=== PATIENT | female | born 1975 | race Two or more races ===

== ENCOUNTER 2017-12-16 06:34 | Inpatient (IN) | payer BC ==
[2017-12-16] VITALS (12 sets, daily range): BP systolic 99–118; BP diastolic 54–77
[~2017-12-16] VITALS: Ht 154.9 cm; Wt 67.6 kg
[~2017-12-16 06:34] MED LIST: NKM
[2017-12-16] MEDS ORDERED: Zemuron 50mg/5ml Inj IV ONE ×2 (08:10→10:08)
[2017-12-16] MEDS ORDERED: Succinylcholine 20mg/ml 10ml vial ONE (08:10)
[2017-12-16] MEDS ORDERED: fentaNYL 100 mcg/2 mL IV ONE (08:27)
[2017-12-16] MEDS ORDERED: Midazolam 2mg/2ml Inj ONE (08:27)
[2017-12-16] MEDS ORDERED: Bacitracin 50000 Units Vial ONE (08:28)
[2017-12-16] MEDS ORDERED: Ketorolac 30mg Inj ONE (08:30)
[2017-12-16] MEDS ORDERED: Neostigmine 1mg/ml 10ml Inj ONE (08:30)
[2017-12-16] MEDS ORDERED: LR 1000ml ONE (08:30)
[2017-12-16] MEDS ORDERED: Sterile Water Irrig 1000ml IRRIG ONE (08:30)
--- NOTE | 2017-12-16 08:34 | Pre-Procedure Note/Attestation ---
Pre-Procedure Note/Attestation Complete Prior to Procedure Planned Procedure: bilateral Procedure Narrative: staged debridement of bilateral buttock and back soft tissue necrosis and flap delay and vac placement Indications for Procedure Pre-Operative Diagnosis: bilateral buttock and back soft tissue necrosis, cellulitis Attestation I attest that I discussed the nature of the procedure; its benefits; risks and complications; and alternatives (and the risks and benefits of such alternatives ), prior to the procedure, with the patient (or the patient's legal renewals representative). I attest that, if there was a reasonable possibility of needing a blood transfusion, the patient (or the patient's legal renewals representative) was given the [place] [facility] standardized written summary, pursuant to the [place] Blood Safety Act ([place] Health and Safety Code # 1645, as amended). I attest that I re-evaluated the patient just prior to the surgery and that there has been no change in the patient's H&P, except as documented below: Malcolm Danielle M.D. Dec 16, 2017 08:34
[2017-12-16] MEDS ORDERED: DiphenhydrAMINE 50mg/ml Inj IVP PRN ×2 (09:15→10:00)
[2017-12-16] MEDS ORDERED: PCA HYDROmorphone 1mg/ml 30 ML IV PRN (09:15)
[2017-12-16] MEDS ORDERED: Naloxone 0.4mg/ml Inj IVP PRN (09:15)
[2017-12-16] MEDS ORDERED: Rate Change PCA 1 Each MISC PRN (09:15)
[2017-12-16] MEDS ORDERED: LORazepam 1mg tab ORAL PRN (09:15)
[2017-12-16] MEDS ORDERED: PCA Education Pamphlet MISC ONE (09:15)
[2017-12-16] MEDS ORDERED: NS Irrig 1000ml IRRIG ONE (09:30)
[2017-12-16] MEDS ORDERED: Morphine Sulfate 10mg/ml Inj ONE (09:41)
[2017-12-16] MEDS ORDERED: Glycopyrrolate 0.2mg/ml 1ml Vial ONE (09:41)
[2017-12-16] MEDS ORDERED: Sodium Chloride 10ml vial INJ ONE (09:42)
[2017-12-16] MEDS ORDERED: LR 1000ml 1,000 ML IVLG SCH (10:00)
[2017-12-16] MEDS ORDERED: Meperidine 50mg/ml Inj(FOR RIGORS ONLY) IV PRN (10:00)
[2017-12-16] MEDS ORDERED: Midazolam 2mg/2ml Inj IVP PRN (10:00)
[2017-12-16] MEDS ORDERED: Metoclopramide 10mg/2ml Inj IVP PRN (10:00)
[2017-12-16] MEDS ORDERED: fentaNYL 100 mcg/2 mL IV PRN (10:00)
[2017-12-16] MEDS ORDERED: Ketorolac 30mg Inj IV PRN (10:00)
--- NOTE | 2017-12-16 10:00 | Anethesia Preoperative Eval ---
Anesthesia Pre-op PMH/ROS General Date of Evaluation: Dec 16, 2017 Time of Evaluation: 08:20 Anesthesiologist: Bobby ASA Score: ASA 2 Mallampati Score Class I : Soft palate, uvula, fauces, pillars visible Class II: Soft palate, uvula, fauces visible Class III: Soft palate, base of uvula visible Class IV: Only hard plate visible Mallampati Classification: Class II Surgeon: Shashi Diagnosis: Bilateral buttocks cellulitis Surgical Procedure: Excision of necrotik tissues bilateral buttocks Anesthesia History: none Family History: no anesthesia problems Allergies: Coded Allergies: No Known Allergies (Unverified , 12/15/17) Medications: see eMAR Past Medical History Cardiovascular: Denies: HTN, CAD, [place], valve dz, arrhythmia, other Pulmonary: Reports: asthma - mild; Denies: COPD, RAUL, other Gastrointestinal/Genitourinary: Reports: GERD; Denies: CRI, ESRD, other Neurologic/Psychiatric: Reports: depression/anxiety; Denies: dementia, CVA, TIA, other Endocrine: Denies: DM, hypothyroidism, steroids, other HEENT: Denies: cataract (L), cataract (R), glaucoma, [place]BE (L), [place]BE (R), other Hematology/Immune: Denies: anemia, DVT, bleeding disorder, other Musculoskeletal/Integumentary: Denies: OA, RA, DJD, DDD, edema, other PMH Narrative: as above PSxH Narrative: Breasts augmentation, abdominoplasty Anesthesia Pre-op Phys. Exam Physician Exam Last Vital Signs Date Time Temp Pulse Resp B/P (MAP) Pulse Ox O2 Delivery O2 Flow Rate FiO2 12/16/17 07:12 Room Air 12/16/17 07:11 98.2 56 18 118/77 (91) 99 98.2 Constitutional: NAD Neurologic: CN 2-12 intact Cardiovascular: RRR, no M/R/G Respiratory: CTA Gastrointestinal: S/NT/ND Airway Exam Mallampati Score: Class II MO: full Neck: flexible ROM: full Teeth: intact Anesthesia Pre-op A/P Labs Urine Test Test 12/16/17 06:50 Urine HCG, Qualitative Negative (NEGATIVE) Studies Pre-op Studies: EKG - NSR Risk Assessment & Plan Assessment: ASA 2 Plan: GA with ETT prone position, PONV, possible intraoperative blood transfusion Status Change Before Surgery: No Pre-Antibiotics Drug: Ancef 1 gr. Given Within 1 Hr of Incision: Yes Time Given: 09:12 Manny Rosales MD Dec 16, 2017 10:00
--- NOTE | 2017-12-16 10:58 | Operative Note - PDOC ---
Operative Note Operative Note Date of Operation/Procedure: Dec 16, 2017 Pre-op Diagnosis: bilateral buttock and back soft tissue necrosis, cellulitis Procedure: staged debridement of bilateral buttock and back soft tissue necrosis, flap delay and wound vac placement Post-op Diagnosis: same Surgeon: jeanmarie Percolator Operator: jonathan Anesthesiologist: yamil Anesthesia: general Specimen: yes - bilateral buttock and back soft tissue necrosis Complications: none Condition: stable Fluids: 1 prbc Estimated Blood Loss: volume - 500 Drains: wound vac Implant(s) used?: No Indications for Procedure symptomatic bilateral buttock and back soft tissue necrosis, cellulitis Description of Procedure see op note dictation Malcolm Danielle M.D. Dec 16, 2017 10:58
--- NOTE | 2017-12-16 11:12 | Immediate Post-Op Evaluation ---
Immediate Post-Op Evalulation Immediate Post-Op Evalulation Procedure: Excision of necroticn tissues bilateral buttock Date of Evaluation: Dec 16, 2017 Time of Evaluation: 11:11 IV Fluids: 1500 Blood Products: 1 unit of PRBC Estimated Blood Loss: 400 Urinary Output: 150 Blood Pressure Systolic: 114 Blood Pressure Diastolic: 56 Pulse Rate: 78 Respiratory Rate: 20 O2 Sat by Pulse Oximetry: 99 Temperature (Fahrenheit): 97.6 Pain Score (1-10): 2 Nausea: No Vomiting: No Complications none Patient Status: reacts, patent, extubated, none Hydration Status: adequate Manny Rosales MD Dec 16, 2017 11:12
[2017-12-16] MEDS ORDERED: DiphenhydrAMINE 50mg/ml Inj IVP SCH (11:15)
[2017-12-16] MEDS ORDERED: Acetaminophen (Non formulary) 100 ML IV ONE (14:00)
[2017-12-16] MEDS: LR 1000ml 1,000 ML IV SCH ×2 (15:02→23:54)
[2017-12-16] MEDS: Ampicillin/Sulbactam Sod 3 GM in NS 110 ML IVPB SCH ×2 (15:02→23:55)
--- NOTE | 2017-12-16 17:36 | 48 Hour Post Anesthesia Eval ---
Post Anesthesia Evaluation Procedure: Excision of necroticn tissues bilateral buttock Date of Evaluation: Dec 16, 2017 Time of Evaluation: 18:55 Blood Pressure Systolic: 112 0: 68 Pulse Rate: 67 Respiratory Rate: 16 Temperature (Fahrenheit): 98 O2 Sat by Pulse Oximetry: 100 Airway: patent Nausea: No Vomiting: No Pain Intensity: 3 Hydration Status: adequate Cardiopulmonary Status: Stable Mental Status/LOC: patient returned to baseline Follow-up Care/Observations: 0 Post-Anesthesia Complications: 0 Follow-up care needed: N/A Arnoldo Mera MD Dec 16, 2017 17:36
--- NOTE | 2017-12-16 18:15 | Anethesia Preoperative Eval ---
Anesthesia Pre-op PMH/ROS General Date of Evaluation: Dec 16, 2017 Time of Evaluation: 17:17 Anesthesiologist: Samaria ASA Score: ASA 2 Mallampati Score Class I : Soft palate, uvula, fauces, pillars visible Class II: Soft palate, uvula, fauces visible Class III: Soft palate, base of uvula visible Class IV: Only hard plate visible Mallampati Classification: Class II Surgeon: Shashi Diagnosis: Necrotic Skin Tissue Bilateral Buttocks Surgical Procedure: Staged Debridement Necrotic Skin Tissue Bilateral Buttocks Anesthesia History: none Family History: no anesthesia problems Allergies: Coded Allergies: No Known Allergies (Unverified , 12/15/17) Medications: see eMAR Past Medical History Pulmonary: Reports: asthma Neurologic/Psychiatric: Reports: depression/anxiety PSxH Narrative: Bilateral breast Aug Anesthesia Pre-op Phys. Exam Physician Exam Last Vital Signs Date Time Temp Pulse Resp B/P (MAP) Pulse Ox O2 Delivery O2 Flow Rate FiO2 12/16/17 17:36 208.4 67 16 100 12/16/17 12:30 112/68 (83) 12/16/17 12:05 Nasal Cannula 3 Constitutional: NAD Neurologic: CN 2-12 intact Cardiovascular: RRR Respiratory: CTA Gastrointestinal: S/NT/ND Airway Exam Mallampati Score: Class II MO: full ROM: full Teeth: intact Anesthesia Pre-op A/P Labs Urine Test Test 12/16/17 06:50 Urine HCG, Qualitative Negative (NEGATIVE) Risk Assessment & Plan Assessment: ASA 2 Plan: GA Status Change Before Surgery: No Pre-Antibiotics Drug: Arnoldo Ragland MD Dec 16, 2017 18:15
[2017-12-16] MEDS: PCA shift volume MISC SCH (19:00)
[2017-12-16] MEDS ORDERED: Albuterol ud Inhalation HHN PRN (20:00)
--- NOTE | 2017-12-16 20:01 | History & Physical ---
History and Physical History & Physicial H&P [id number] ADDISON STAPLETON M.D. Dec 16, 2017 20:01
[2017-12-16] MEDS: Heparin 5000 units/ml inj SUBQ SCH (22:00)
[2017-12-17 00:22] VITALS: BP 103/59
[2017-12-17 04:00] VITALS: BP 100/63
[2017-12-17] MEDS: Heparin 5000 units/ml inj SUBQ SCH ×3 (05:10→21:45)
[2017-12-17] MEDS: Ampicillin/Sulbactam Sod 3 GM in NS 110 ML IVPB SCH ×4 (05:10→23:11)
[2017-12-17] MEDS: LR 1000ml 1,000 ML IV SCH ×2 (05:11→21:45)
[2017-12-17] MEDS: PCA shift volume MISC SCH (07:00)
[2017-12-17 07:43] LABS: BASOPHILS % (AUTO) 0.8 % (0.0-2.0); EOSINOPHILS % (AUTO) 0.8 % (0.0-3.0); HEMATOCRIT 28.2 % (37.0-47.0); HEMOGLOBIN 10.2 G/DL (12.0-16.0); LYMPHOCYTES % (AUTO) 27.7 % (20.0-45.0); MEAN CORPUSCULAR VOLUME 86 FL (80-99); MONOCYTES % (AUTO) 7.7 % (1.0-10.0); NEUTROPHILS % (AUTO) 62.9 % (45.0-75.0); PLATELET COUNT 195 K/UL (150-450); RED BLOOD COUNT 3.27 M/UL (4.20-5.40); RED CELL DISTRIBUTION WIDTH 10.7 % (11.6-14.8); WHITE BLOOD COUNT 6.5 K/UL (4.8-10.8)
[2017-12-17 08:00] VITALS: BP 105/58
[2017-12-17 08:10] LABS: ANION GAP 5 mmol/L (5-15); BLOOD UREA NITROGEN 5 mg/dL (7-18); CALCIUM 7.6 MG/DL (8.5-10.1); CARBON DIOXIDE 26 MMOL/L (21-32); CHLORIDE 106 MMOL/L (98-107); CREATININE 0.5 MG/DL (0.55-1.30); POTASSIUM 3.5 MMOL/L (3.5-5.1); SODIUM 137 MMOL/L (136-145)
--- NOTE | 2017-12-17 12:10 | General Progress Note ---
Progress Note Progress Note pt doing very well except for some nausea. Pt reports resolution of pre-op local and systemic symptoms and very pleased with results. (+) OOB PE: flaps viable, VACS functioning; (-) collections (-) signs of infection H/H 03/07 A/P 1. anti-nausea rx; change from dilaudid to morphine if nausea continues 2. drop IVF to 50 cc/hr 3. d/c joy 4. cont iv abx, HSQ 5. daily labs 6. to OR [facility] fo further debridement and flap closure over drains 7. frequent position changes, OOB Malcolm Danielle M.D. Dec 17, 2017 12:10
[2017-12-17 12:32] VITALS: BP 103/69
[2017-12-17 16:00] VITALS: BP 106/59
[2017-12-17] MEDS ORDERED: HYDROcodone/Acetamin 7.5/325 tab ORAL PRN (17:00)
[2017-12-17] MEDS: HYDROcodone/Acetamin 7.5/325 tab ORAL PRN (19:40)
[2017-12-17 20:00] VITALS: BP 110/60
[2017-12-18 00:21] VITALS: BP 121/70
[2017-12-18 04:00] VITALS: BP 117/61
[2017-12-18] MEDS: Ampicillin/Sulbactam Sod 3 GM in NS 110 ML IVPB SCH ×4 (05:18→23:22)
[2017-12-18] MEDS: Heparin 5000 units/ml inj SUBQ SCH ×3 (05:20→21:25)
[2017-12-18] MEDS: HYDROcodone/Acetamin 7.5/325 tab ORAL PRN ×2 (05:21→18:27)
[2017-12-18 06:55] LABS: BASOPHILS % (AUTO) 1.1 % (0.0-2.0); EOSINOPHILS % (AUTO) 0.8 % (0.0-3.0); HEMATOCRIT 27.5 % (37.0-47.0); HEMOGLOBIN 9.7 G/DL (12.0-16.0); LYMPHOCYTES % (AUTO) 18.8 % (20.0-45.0); MEAN CORPUSCULAR VOLUME 86 FL (80-99); MONOCYTES % (AUTO) 9.7 % (1.0-10.0); NEUTROPHILS % (AUTO) 69.6 % (45.0-75.0); PLATELET COUNT 188 K/UL (150-450); RED CELL DISTRIBUTION WIDTH 10.4 % (11.6-14.8); WHITE BLOOD COUNT 5.1 K/UL (4.8-10.8)
[2017-12-18 07:00] LABS: ANION GAP 6 mmol/L (5-15); BLOOD UREA NITROGEN 5 mg/dL (7-18); CARBON DIOXIDE 28 MMOL/L (21-32); CHLORIDE 105 MMOL/L (98-107); CREATININE 0.5 MG/DL (0.55-1.30); SODIUM 139 MMOL/L (136-145)
[2017-12-18 08:00] VITALS: BP 105/62
[2017-12-18 12:00] VITALS: BP 106/60
--- NOTE | 2017-12-18 12:18 | Pre-Procedure Note/Attestation ---
Pre-Procedure Note/Attestation Complete Prior to Procedure Planned Procedure: bilateral Procedure Narrative: staged debridement of bilateral buttock and back necrotic soft tissue and advancement flap closure Indications for Procedure Pre-Operative Diagnosis: bilateral buttock and back soft tissue necrosis, cellulitis Attestation I attest that I discussed the nature of the procedure; its benefits; risks and complications; and alternatives (and the risks and benefits of such alternatives ), prior to the procedure, with the patient (or the patient's legal digital sales representative). I attest that, if there was a reasonable possibility of needing a blood transfusion, the patient (or the patient's legal digital sales representative) was given the [facility] standardized written summary, pursuant to the [place] Blood Safety Act ([place] Health and Safety Code # 1645, as amended). I attest that I re-evaluated the patient just prior to the surgery and that there has been no change in the patient's H&P, except as documented below: Malcolm Danielle M.D. Dec 18, 2017 12:18
--- NOTE | 2017-12-18 12:21 | General Progress Note ---
Progress Note Progress Note pt c/o headache and some nausea (+) OOB PE: AF, VSS flaps viable (-)collections (-) signs infection H/H 9.10/02 A/P 1. NPO, IVF p MN 2. to or in am for further debridement of bilateral buttock and back necrotic soft tissue and flap closure 3. cont abx, vac, dvt ppx 4. dr leonidas dodson ip will be covering for me from 12/19/17 on 5. post-op care d/w pt and all questions answered Malcolm Danielle M.D. Dec 18, 2017 12:21
[2017-12-18] MEDS: LR 1000ml 1,000 ML IV SCH (15:59)
[2017-12-18 16:00] VITALS: BP 110/63
[2017-12-18 20:00] VITALS: BP 117/71
[2017-12-19] VITALS (11 sets, daily range): BP systolic 103–132; BP diastolic 50–83
[2017-12-19] MEDS: LR 1000ml 1,000 ML IV SCH ×4 (00:01→21:21)
[2017-12-19] MEDS: Ampicillin/Sulbactam Sod 3 GM in NS 110 ML IVPB SCH ×4 (05:15→23:33)
[2017-12-19] MEDS: Heparin 5000 units/ml inj SUBQ SCH ×3 (05:15→21:42)
[2017-12-19] MEDS ORDERED: Sodium Chloride 10ml vial INJ ONE (06:11)
[2017-12-19] MEDS ORDERED: Propofol 200mg/20ml IV ONE (06:11)
[2017-12-19] MEDS ORDERED: Lidocaine 1% MPF 10mg/ml 5ml ONE (06:11)
[2017-12-19] MEDS ORDERED: Dexamethasone 4mg/ml vial ONE (06:11)
[2017-12-19] MEDS ORDERED: Lidocaine 1% Plain 30 ml INJ ONE (06:11)
[2017-12-19] MEDS ORDERED: fentaNYL 100 mcg/2 mL IV ONE (06:17)
[2017-12-19] MEDS ORDERED: Zemuron 50mg/5ml Inj IV ONE (06:26)
[2017-12-19] MEDS ORDERED: NeoSporin Gu Irrig 1ml Amp IRRIG ONE (06:40)
[2017-12-19] MEDS ORDERED: Bacitracin 50000 Units Vial ONE (06:40)
[2017-12-19] MEDS ORDERED: LR 1000ml 1,000 ML IVLG SCH (06:43)
[2017-12-19] MEDS ORDERED: oxyCODONE HCL/Acetaminophen 5/325mg ORAL PRN (06:45)
[2017-12-19] MEDS ORDERED: Midazolam 2mg/2ml Inj IVP PRN (06:45)
[2017-12-19] MEDS ORDERED: Acetaminophen (Non formulary) 100 ML IV ONE (06:45)
[2017-12-19] MEDS ORDERED: HYDROcodone/Acetamin 7.5/325 tab ORAL PRN (06:45)
[2017-12-19] MEDS ORDERED: Hydromorphone 0.5mg/0.5ml inj IVP PRN (06:45)
[2017-12-19] MEDS ORDERED: Metoclopramide 10mg/2ml Inj IVP PRN (06:45)
[2017-12-19] MEDS ORDERED: Norco 5mg/325mg tab ORAL PRN (06:45)
[2017-12-19] MEDS ORDERED: DiphenhydrAMINE 50mg/ml Inj IVP PRN (06:45)
[2017-12-19] MEDS ORDERED: LORazepam Inj 2mg/ml 1ml IV PRN (06:45)
[2017-12-19] MEDS ORDERED: Atropine Inj 1mg/10ml Syr IV PRN (06:45)
[2017-12-19] MEDS ORDERED: Labetalol 5mg/ml 20ml vial IV PRN (06:45)
[2017-12-19] MEDS ORDERED: fentaNYL 100 mcg/2 mL IV PRN (06:45)
--- NOTE | 2017-12-19 06:45 | Immediate Post-Op Evaluation ---
Immediate Post-Op Evalulation Immediate Post-Op Evalulation Procedure: Excision of necroticn tissues bilateral buttock Date of Evaluation: Dec 19, 2017 Time of Evaluation: 09:48 IV Fluids: 900 LR Blood Products: 0 Estimated Blood Loss: 100 Urinary Output: 0 Blood Pressure Systolic: 125 Blood Pressure Diastolic: 75 Pulse Rate: 81 Respiratory Rate: 16 O2 Sat by Pulse Oximetry: 100 Temperature (Fahrenheit): 97.7 Pain Score (1-10): 2 Nausea: No Vomiting: No Complications 0 Patient Status: awake, reacts, patent, extubated, none Hydration Status: adequate Dru Gram Ancef IV Given Within 1 Hr of Incision: Yes Time Given: 07:11 Arnoldo Mera MD Dec 19, 2017 06:45
[2017-12-19] MEDS ORDERED: LR 1000ml ONE (07:00)
[2017-12-19] MEDS ORDERED: Sterile Water Irrig 1000ml IRRIG ONE (07:00)
[2017-12-19] MEDS ORDERED: NS Irrig 1000ml ONE (07:00)
[2017-12-19] MEDS ORDERED: Propofol 1,000mg/ 100ml btl IV ONE (07:00)
[2017-12-19] MEDS ORDERED: NS Irrig 2000ml IRRIG ONE (07:00)
[2017-12-19 07:05] LABS: BASOPHILS % (AUTO) 1.5 % (0.0-2.0); EOSINOPHILS % (AUTO) 1.1 % (0.0-3.0); HEMATOCRIT 27.2 % (37.0-47.0); HEMOGLOBIN 9.6 G/DL (12.0-16.0); LYMPHOCYTES % (AUTO) 46.1 % (20.0-45.0); MEAN CORPUSCULAR VOLUME 85 FL (80-99); MONOCYTES % (AUTO) 9.1 % (1.0-10.0); NEUTROPHILS % (AUTO) 42.3 % (45.0-75.0); PLATELET COUNT 201 K/UL (150-450); RED CELL DISTRIBUTION WIDTH 10.1 % (11.6-14.8); WHITE BLOOD COUNT 4.5 K/UL (4.8-10.8)
[2017-12-19 07:06] LABS: ANION GAP 5 mmol/L (5-15); BLOOD UREA NITROGEN 4 mg/dL (7-18); CALCIUM 7.9 MG/DL (8.5-10.1); CARBON DIOXIDE 31 MMOL/L (21-32); CHLORIDE 106 MMOL/L (98-107); CREATININE 0.6 MG/DL (0.55-1.30); POTASSIUM 3.5 MMOL/L (3.5-5.1); SODIUM 141 MMOL/L (136-145)
[2017-12-19] MEDS ORDERED: Glycopyrrolate 0.2mg/ml 1ml Vial ONE (08:05)
[2017-12-19] MEDS ORDERED: Neostigmine 1mg/ml 10ml Inj ONE (08:05)
--- NOTE | 2017-12-19 09:38 | Operative Note - PDOC ---
Operative Note Operative Note Pre-op Diagnosis: bilateral buttock and back soft tissue necrosis, cellulitis Procedure: staged debridement of bilateral buttock and hip soft tissue necrosis, advancement flap closure Post-op Diagnosis: same Post-op Diagnosis: same as pre-op Surgeon: jeanmarie Corporate Statistical Financial Analyst: jonathan Anesthesiologist: grayson Anesthesia: general Specimen: yes - bilateral buttock and hip soft tissue necrosis Complications: none Condition: stable Estimated Blood Loss: volume - 300 Drains: RENATO Implant(s) used?: No Indications for Procedure symptomatic soft tissue necrosis, cellulitis Description of Procedure see dictation Malcolm Danielle M.D. Dec 19, 2017 09:38
[2017-12-19] MEDS: Morphine Sulfate 4mg/ml Inj (IV USE ONLY) IVP PRN ×2 (13:02→21:39)
--- NOTE | 2017-12-19 19:43 | Internal Med Progress Note ---
Subjective Physician Name ChristineAddison Attending Physician Malcolm Danielle M.D. Current Medications Medications (Trade) Dose Ordered Sig/Stephanie Route PRN Reason Start Time Stop Time Status Last Admin Dose Admin Acetaminophen (Tylenol) 650 mg Q6H PRN ORAL Prn Headache 12/17/17 15:45 01/16/18 15:44 12/18/17 23:23 Albuterol Sulfate (Proventil) 2.5 mg Q4H PRN HHN sob 12/16/17 20:00 12/21/17 19:59 Ampicillin Sodium/ Sulbactam Sodium 3 gm/Sodium Chloride 110 ml @ 220 mls/hr Q6HR IVPB 12/16/17 14:00 12/23/17 13:59 12/19/17 17:02 Heparin Sodium (Porcine) (Heparin 5000 units/ml) 5,000 units EVERY 8 HOURS SUBQ 12/16/17 22:00 01/15/18 21:59 12/19/17 13:58 Lactated Ringer's 1,000 ml @ 125 mls/hr Q8H IV 12/19/17 12:52 01/18/18 12:51 12/19/17 13:15 Morphine Sulfate (Morphine Sulfate) 4 mg Q4H PRN IVP For Pain 12/19/17 12:52 12/26/17 12:51 12/19/17 13:02 Ondansetron HCl (Zofran) 4 mg Q4H PRN IVP Nausea & Vomiting 12/18/17 11:00 01/17/18 10:59 12/18/17 18:27 Allergies: Coded Allergies: No Known Allergies (Unverified , 12/15/17) All Systems: reviewed and negative except above - 2/10 pelvic pain; + RYAN Objective Last Vital Signs Date Time Temp Pulse Resp B/P (MAP) Pulse Ox O2 Delivery O2 Flow Rate FiO2 12/19/17 16:00 97.9 71 20 111/72 (85) 100 97.9 12/19/17 14:30 Room Air 21 12/19/17 10:25 3 Laboratory Tests Test 12/19/17 06:35 White Blood Count 4.5 K/UL (4.8-10.8) L Red Blood Count 3.20 M/UL (4.20-5.40) L Hemoglobin 9.6 G/DL (12.0-16.0) L Hematocrit 27.2 % (37.0-47.0) L Mean Corpuscular Volume 85 FL (80-99) Mean Corpuscular Hemoglobin 30.1 PG (27.0-31.0) Mean Corpuscular Hemoglobin Concent 35.5 G/DL (32.0-36.0) Red Cell Distribution Width 10.1 % (11.6-14.8) L Platelet Count 201 K/UL (150-450) Mean Platelet Volume 7.0 FL (6.5-10.1) Neutrophils (%) (Auto) 42.3 % (45.0-75.0) L Lymphocytes (%) (Auto) 46.1 % (20.0-45.0) H Monocytes (%) (Auto) 9.1 % (1.0-10.0) Eosinophils (%) (Auto) 1.1 % (0.0-3.0) Basophils (%) (Auto) 1.5 % (0.0-2.0) Sodium Level 141 MMOL/L (136-145) Potassium Level 3.5 MMOL/L (3.5-5.1) Chloride Level 106 MMOL/L (98-107) Carbon Dioxide Level 31 MMOL/L (21-32) Anion Gap 5 mmol/L (5-15) Blood Urea Nitrogen 4 mg/dL (7-18) L Creatinine 0.6 MG/DL (0.55-1.30) Estimat Glomerular Filtration Rate > 60 mL/min (>60) Glucose Level 101 MG/DL (74-106) Calcium Level 7.9 MG/DL (8.5-10.1) L Intake and Output 12/18/17 12/19/17 19:00 07:00 Intake Total 530 ml 1520 ml Output Total 200 ml 200 ml Balance 330 ml 1320 ml Intake Oral 480 ml 300 ml IV Total 50 ml 1220 ml Drainage Total 200 ml 200 ml # Voids 3 3 # Bowel Movements 1 Objective PE: Gen - NAD. awake HEENT - NC/AT CVS - RRR. nl s1,2 Lungs - CTA b/l Abd - ND/NT Ext - no c/c/e skin - gluteal wound vac c/d/i ; 2 drains on right and 2 drains on left Assessment/Plan Assessment/Plan bilateral buttock and back soft tissue necrosis, cellulitis s/p staged debridement of bilateral buttock and hip soft tissue necrosis, advancement flap closure - Medsurg - Abx - Plastics following - Wound vac draining - Monitor h/H dc planning - ADDISON Eagle M.D. Dec 19, 2017 19:43
[2017-12-20 00:41] VITALS: BP 119/72
[2017-12-20] MEDS: Morphine Sulfate 4mg/ml Inj (IV USE ONLY) IVP PRN ×6 (01:22→20:42)
[2017-12-20] MEDS: LR 1000ml 1,000 ML IV SCH ×3 (04:37→20:41)
[2017-12-20] MEDS: Heparin 5000 units/ml inj SUBQ SCH ×3 (05:16→20:50)
[2017-12-20] MEDS: Ampicillin/Sulbactam Sod 3 GM in NS 110 ML IVPB SCH ×4 (05:17→23:50)
[2017-12-20 07:17] LABS: ANION GAP 4 mmol/L (5-15); BLOOD UREA NITROGEN 5 mg/dL (7-18); CALCIUM 7.9 MG/DL (8.5-10.1); CARBON DIOXIDE 30 MMOL/L (21-32); CHLORIDE 106 MMOL/L (98-107); CREATININE 0.6 MG/DL (0.55-1.30); POTASSIUM 3.6 MMOL/L (3.5-5.1); SODIUM 140 MMOL/L (136-145)
[2017-12-20 07:20] LABS: BASOPHILS % (AUTO) 1.1 % (0.0-2.0); EOSINOPHILS % (AUTO) 1.1 % (0.0-3.0); HEMATOCRIT 24.3 % (37.0-47.0); HEMOGLOBIN 8.7 G/DL (12.0-16.0); LYMPHOCYTES % (AUTO) 33.1 % (20.0-45.0); MEAN CORPUSCULAR VOLUME 87 FL (80-99); NEUTROPHILS % (AUTO) 56.6 % (45.0-75.0); PLATELET COUNT 217 K/UL (150-450); RED BLOOD COUNT 2.81 M/UL (4.20-5.40); RED CELL DISTRIBUTION WIDTH 10.7 % (11.6-14.8)
[2017-12-20 08:00] VITALS: BP 107/60
--- NOTE | 2017-12-20 10:49 | Operative Note - Dictated ---
DATE OF OPERATION: 12/16/2017 SURGEON: Malcolm Danielle M.D. SEAM STEAMER SURGEON: Patricia Cardona M.D. ANESTHESIOLOGIST: Manny Rosales M.D. ANESTHESIA: General endotracheal tube anesthesia. PREOPERATIVE DIAGNOSES: 1. Bilateral buttocks, hip, and back soft tissue necrosis secondary to foreign body. 2. Chronic cellulitis of bilateral buttocks. 3. Multiple granulomas in bilateral buttocks, back, and hip soft tissue and muscle. POSTOPERATIVE DIAGNOSES: 1. Bilateral buttocks and back soft tissue necrosis secondary to foreign body. 2. Chronic cellulitis of bilateral buttocks. 3. Multiple granulomas in bilateral buttocks, back, and hip soft tissue and muscle. OPERATIONS PERFORMED: 1. Staged partial removal of foreign material from bilateral buttocks, back, and hips. 2. Elevation and delay of right inferiorly-based gluteal fasciocutaneous flap/adjacent tissue transfer/460 sq. cm. 3. Elevation and delay of left inferiorly-based gluteal fasciocutaneous flap/adjacent tissue transfer/444 cm. 4. Elevation and delay of lumbar spine fasciocutaneous flap/adjacent tissue transfer/300 sq. cm. 5. Radical resection of 460 sq. cm of right buttock necrotic soft tissue mass. 6. Radical resection of 444 cm of left buttock necrotic soft tissue mass. 7. Radical resection of 160 sq cm of right back necrotic soft tissue mass. 8. Radical resection of 140 sq cm of left back necrotic soft tissue mass. 9. Debridement of bilateral necrotic gluteus lesly muscles. 10. Pulse jet lavage irrigation of bilateral buttocks. 11. Wound VAC placement to bilateral buttocks. SPECIMENS: Four, 1. Left back necrotic soft tissue mass. 2. Right back necrotic soft tissue mass. 3. Left buttock necrotic soft tissue mass. 4. Right buttock necrotic soft tissue mass. ESTIMATED BLOOD LOSS: 500 mL. The patient received 1 unit of packed red blood cells. COMPLICATIONS: None. CONDITION: Stable. DRAINS: Wound VACs to bilateral buttocks. INDICATIONS FOR THE PROCEDURE: The patient is a 41-year-old female, who is scheduled today for staged partial removal and debridement of bilateral buttocks, hip, and back soft tissue necrosis as well as fasciocutaneous flap delay and wound VAC placement. The patient has a history of some foreign material, likely silicone injected to bilateral buttocks several years ago. The patient had an unsuccessful attempt at removal via suction lipectomy in the past, which I explained to her complicates her current condition and management of her future course. The patient has had local as well as systemic symptoms such as low back pain, buttock pain, burning, itching, bilateral lower extremity paresthesia, occasional shortness of breath, anxiety, and chronic fatigue. She has been worked up for SINA syndrome and her blood work is pending. Preoperatively, the patient has been optimized by her medical doctor. She was also seen by a psychiatrist preoperatively, so that she understands the followin. That this is a partial staged removal of foreign material that was injected into the buttocks and hips and there is no guarantee that she will get better. 2. There is a possibility that she may get worse and the foreign material may migrate and may have already migrated and may continue to migrate in the future, especially since she . 3. It is impossible for to remove all the foreign material impossible because it is impossible to remove all of it. 4. There is a possibility that this could be cosmetically disfiguring and that can be a very poor cosmetic outcome. 5. There is a chance that her health may not improve. The benefits of the proposed operation would be to debulk and remove as much of the foreign body burden as possible, which would likely take the pressure off the nerves of her spine, her legs, her buttocks, and her back and then it should allow her to to infect, so she is not as prone to recurrent infections and opportunistic infections and lower the amount of residual foreign material, which will minimize potentially migrate to other parts of the body. The patient has had a low-grade chronic cellulitis as well as significant soft tissue hardening and some areas of hyperpigmentation and erythema of bilateral buttocks and hips. We are going to keep the patient on IV antibiotics perioperatively. MRIs, which were previously done of the lumbar spine and pelvis, showed significant soft tissue infiltration of bilateral buttocks and hip, subcutaneous tissue, and significant involvement of bilateral gluteus lesly muscles, some anterolateral migration to the hips, as well as migration to L3 of the lumbar spine. I told the patient that we will manage her pain appropriately and this is going to be a staged procedure. unknown how much of the foreign material we would take out, but we will take out if it possible in a safe manner. We have reiterated to the patient that this could be cosmetically disfiguring, she scarring, or wound may break down. She may need multiple reconstructive surgeries over the next many years and the buttocks may come out significantly deformed. I told her conversely if she does nothing, she is at risk of her whole buttocks necrosing, which would require much more radical surgery. The potential risks of the proposed operation including, but not limited to bleeding, hematoma, infection, seroma, DVT, PE, IA, and , necrosis of the skin flaps, open wounds, delayed healing, hypertrophic scarring, keloid scarring, skin necrosis, damage to sensory and motor nerves, difficulty ambulating, chronic pain, and embolization of the silicone to other parts of the body were discussed with the patient and all questions were answered in the preop holding area. I correlated with the patient's markings and with the physical exam as well as MRI. It was reiterated to the patient that it is unknown how much of the foreign material . The patient understood this and and her buttocks. DESCRIPTION OF PROCEDURE: The patient was taken to the operating room and prior to the induction of general anesthesia in the supine position, perioperative antibiotics were given and SCDs were placed on bilateral lower extremities. She was then positioned and padded in the appropriate position and the patient was placed in a prone position. She was prepped and draped in the usual clean and sterile manner. The anus was protected with a blue towel and [place] dressing. incision in the skin with a #10 scalpel. We dissected down through the skin with electrocautery all the way down to the deep muscle fascia of the gluteus lesly muscle and the paraspinal muscles. We then elevated and delayed. Three fasciocutaneous flaps were elevated and superiorly based lumbar fasciocutaneous flap about 10 cm superiorly and centrally correlating to MRI exam as well as the physical exam findings of the fluctuant mass. It is tender skin. This flap is based on perforators of the not from the posterior back. We then elevated and delayed left and right inferiorly based gluteal fasciocutaneous flaps ____ muscle fascia preserved. Then, in a plane just deep to Gavino fascia, we dissected the skin flap off the necrotic soft tissue mass and with a combination of sharp dissection and electrocautery, we debulked the large amount of fat necrosis and scar tissue and silicone granulomas from bilateral buttocks, hips, and back. There was 160 sq. cm of right back, 140 sq. cm of left back, 460 sq. cm of right buttock, 440 sq. cm of left buttock necrotic soft tissue mass and sent for lab for pathology. After doing this, we were left with a 460 sq. cm of open wound in the right buttock and 440 sq. cm open wound in the left buttock and a total of 300 sq. cm open wound of the lumbar spine soft tissue coverage. We further delayed the flaps by incising the deep muscle fascia of the above-mentioned three fasciocutaneous flaps . We then performed the adjacent tissue transfer that was devoid of soft tissue. lumbar spine adjacent tissue transfer that was performed . After doing this, there was significant necrosis of significant necrosis of bilateral gluteus lesly muscles involving the significant involvement of silicone within the deep muscles electrocautery. We tried to and also popped this open granuloma that was just below the buttocks. We then ensured hemostasis with electrocautery and pulse lavaged with 3 L of antibiotic jet lavage. After doing this, we were quite pleased with initial debulking of flap on the right. We then assured hemostasis and placed the wound VAC and set it to 125 mmHg. The patient was flipped over, extubated, and transferred to recovery room in a stable condition. Malcolm Danielle M.D. DR: ARIEL JOB#: [id number] CC: EDWARDO
--- NOTE | 2017-12-20 10:55 | Operative Note - Dictated ---
DATE OF OPERATION: 12/19/2017 SURGEON: Malcolm Danielle M.D. RAIL[employer]AY [employer]ATION MANAGER SURGEON: Patricia Cardona M.D. ANESTHESIOLOGIST: Arnoldo Mera M.D. ANESTHESIA: General endotracheal tube anesthesia. PREOPERATIVE DIAGNOSES: 1. Open bilateral buttock wounds, status post radical debridement and resection of necrotic soft tissue from bilateral buttocks and back. 2. 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 3. Chronic cellulitis of bilateral buttocks. 4. Bilateral buttock granulomatous disease. POSTOPERATIVE DIAGNOSES: 1. Open bilateral buttock wounds, status post radical debridement and resection of necrotic soft tissue from bilateral buttocks and back. 2. 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 3. Chronic cellulitis of bilateral buttocks. 4. Bilateral buttock granulomatous disease. PROCEDURE PERFORMED: 1. Staged partial removal of foreign bodies from bilateral buttocks and hips as well as removal of granulomas. 2. Radical resection of 500 sq cm of right hip necrotic soft tissue mass. 3. Radical resection of 324 sq cm of left hip necrotic soft tissue mass. 4. Debridement of bilateral gluteus lesly necrotic muscles. 5. Lumbar spine fasciocutaneous advancement flap/adjacent tissue transfer/200 sq cm. 6. Right gluteal fasciocutaneous advancement flap/adjacent tissue transfer/500 sq cm. 7. Left gluteal fasciocutaneous advancement flap/adjacent tissue transfer/324 sq cm. 8. Complex closure of 54 cm open back wound. 9. Prevena incisional wound VAC placement. 10. Pulse jet lavage irrigation of bilateral buttocks open wounds. FINDINGS: As above. SPECIMENS: Two, 1. Left hip necrotic soft tissue mass and skin. 2. Right hip necrotic soft tissue mass and skin. ESTIMATED BLOOD LOSS: 300 mL. DRAINS: A 19-English Chirag x2, 10 mm RENATO x2 in bilateral buttocks, and a Prevena incisional VAC. COMPLICATIONS: None. CONDITION: Stable. INDICATIONS: This is a 41-year-old female, who I previously operated on three days ago. The patient has reported significant resolution of preop symptoms both local and systemic. She has been treated with wound VAC therapy on the floor as well as IV antibiotics. Today, the plan was to take the patient back with debridement of necrotic soft tissue from bilateral buttocks and hips as well as fasciocutaneous advancement flap/adjacent tissue transfer over drains. Risks and benefits of the operation were fully discussed with the patient and the previous operation and reiterated in the holding area today. The patient agreed to proceed. Signed informed consent. All questions were answered and I told the patient the difference between leaving thick flaps and minimizing wound complications versus leaving more foreign material that may become symptomatic in the future and how this is correlated to cosmetic outcome. The patient wanted to be a significant aggressive debridement to which I agreed. DESCRIPTION OF PROCEDURE: The patient was taken to the operating room in the supine position, placed under general endotracheal tube anesthesia after perioperative antibiotics were given and SCDs were placed in bilateral lower extremities. After she was intubated, she was flipped in the prone position. After appropriate positioning and padding of her arms and the rest of the body, removed the wound VAC. The area was prepped and draped in usual clean sterile manner. A blue towel and Ioban dressing was used to block any bowel flow. We started the operation by exploring for any bleeding. There was nothing significant. We then further elevated bilateral inferiorly based gluteal fasciocutaneous flaps 10 cm or so with electrocautery with the aid of a lighted retractor in a plane just superficial to the deep muscle fascia while maintaining blood supply to the inferior gluteal artery perforators, which were supplying her skin flaps. We then used a lighted retractor and we elevated in a plane just deep to Gavino's fashion with a combination of scissors and electrocautery and scalpel technique, we did further debridement of necrotic soft tissue from bilateral hips. There was 500 sq cm in the right hip and 324 sq cm in the left hip, necrotic soft tissue mass that was removed in this manner and sent to the laboratory for specimen. There was significant involvement of bilateral gluteus lesly muscles, which were sharply debrided. Excisional debridement as well as electrocautery was used for hemostasis. After the debridement, we then thinned the flaps with curved Spaulding scissors. After doing this and debriding it as much as possible, leaving the flaps appropriately thick to minimize wound complications, we ensured hemostasis with electrocautery, pulse jet lavage, antibiotic irrigation was then performed. We then had these three previously elevated fasciocutaneous flaps, which were previously delayed. We then released the deep muscle fascia of the lumbar spine fasciocutaneous flap, which was based on the posterior intercostal artery and left and right inferiorly based gluteal fasciocutaneous flaps. Deep muscle fascia was incised and these flaps were surviving on branches of the inferior gluteal artery perforators. After making the cut in the muscle fascia, we advanced the skin to the wound closure. There was some soft tissue defects in the left buttock and underneath the lumbar spine that had to do so with the soft tissue, so the back cut was made and soft tissue was rotated 200 sq cm. Local tissue arrangement was performed underneath the lumbar spine flap 500 sq cm underneath the right hip and 324 sq cm under the left hip. After doing this and ensuring hemostasis, we placed two drains 19-English Chirag drains in the dependent position taken out through a posterior lateral stab incision in the buttocks, secured in place with 2-0 silk sutures and two 10 mm RENATO was placed in the superior aspect taken out through a low back lateral incision secured in place with 2-0 silk sutures. We then did advancement flap progressive tension suturing technique and closure of the wound with 0 Vicryl sutures. We then accounted the dog ears used sterile technique and cut out the excess skin with a #10 blade ensured hemostasis. We were then left with a 54 cm long incision. We then used #0 Vicryl to line up and approximate Gavino's fascia in interrupted fashion 2-0 Vicryl and approximate the deep dermis in interrupted fashion and a running 3-0 Monocryl subcuticular layer. After doing this, there was good contour and minimal tension with good cap refill. We then placed a Prevena incisional VAC placed at 225 mmHg. The drains were secured in place. The patient was flipped over, extubated, and transferred to the recovery room in stable condition. Malcolm Danielle M.D. DR: JOSÉ JOB#: [id number] CC:
[2017-12-20 11:47] VITALS: BP 105/53
--- NOTE | 2017-12-20 14:07 | 48 Hour Post Anesthesia Eval ---
Post Anesthesia Evaluation Procedure: Excision of necroticn tissues bilateral buttock Date of Evaluation: Dec 20, 2017 Time of Evaluation: 16:00 Blood Pressure Systolic: 105 0: 53 Pulse Rate: 64 Respiratory Rate: 18 Temperature (Fahrenheit): 98.5 O2 Sat by Pulse Oximetry: 99 Airway: patent Nausea: No Vomiting: No Pain Intensity: 2 Hydration Status: adequate Cardiopulmonary Status: Stable Mental Status/LOC: patient returned to baseline Follow-up Care/Observations: As per surgery Post-Anesthesia Complications: No anesthetic complication Follow-up care needed: N/A Carl Walter MD Dec 20, 2017 14:06
[2017-12-20 15:56] VITALS: BP 102/61
--- NOTE | 2017-12-20 16:22 | Internal Med Progress Note ---
Subjective Physician Name JavierfranciscaAddison Attending Physician Malcolm Danielle M.D. Current Medications Medications (Trade) Dose Ordered Sig/Stephanie Route PRN Reason Start Time Stop Time Status Last Admin Dose Admin Acetaminophen (Tylenol) 650 mg Q6H PRN ORAL Prn Headache 12/17/17 15:45 01/16/18 15:44 12/18/17 23:23 Albuterol Sulfate (Proventil) 2.5 mg Q4H PRN HHN sob 12/16/17 20:00 12/21/17 19:59 Ampicillin Sodium/ Sulbactam Sodium 3 gm/Sodium Chloride 110 ml @ 220 mls/hr Q6HR IVPB 12/16/17 14:00 12/23/17 13:59 12/20/17 12:19 Heparin Sodium (Porcine) (Heparin 5000 units/ml) 5,000 units EVERY 8 HOURS SUBQ 12/16/17 22:00 01/15/18 21:59 12/20/17 14:25 Lactated Ringer's 1,000 ml @ 125 mls/hr Q8H IV 12/19/17 12:52 01/18/18 12:51 12/20/17 04:37 Morphine Sulfate (Morphine Sulfate) 4 mg Q4H PRN IVP For Pain 12/19/17 12:52 12/26/17 12:51 12/20/17 09:59 Ondansetron HCl (Zofran) 4 mg Q4H PRN IVP Nausea & Vomiting 12/18/17 11:00 01/17/18 10:59 12/18/17 18:27 Allergies: Coded Allergies: No Known Allergies (Unverified , 12/15/17) All Systems: reviewed and negative except above - had Left hand numbness earlier, near syncope Objective Last Vital Signs Date Time Temp Pulse Resp B/P (MAP) Pulse Ox O2 Delivery O2 Flow Rate FiO2 12/20/17 15:56 99.1 79 18 102/61 (75) 100 99.1 79 12/20/17 08:30 Room Air 12/20/17 07:30 21 12/19/17 10:25 3 Laboratory Tests Test 12/20/17 06:05 White Blood Count 7.0 K/UL (4.8-10.8) # Red Blood Count 2.81 M/UL (4.20-5.40) L Hemoglobin 8.7 G/DL (12.0-16.0) L Hematocrit 24.3 % (37.0-47.0) L Mean Corpuscular Volume 87 FL (80-99) Mean Corpuscular Hemoglobin 31.1 PG (27.0-31.0) H Mean Corpuscular Hemoglobin Concent 35.9 G/DL (32.0-36.0) Red Cell Distribution Width 10.7 % (11.6-14.8) L Platelet Count 217 K/UL (150-450) Mean Platelet Volume 6.4 FL (6.5-10.1) L Neutrophils (%) (Auto) 56.6 % (45.0-75.0) Lymphocytes (%) (Auto) 33.1 % (20.0-45.0) Monocytes (%) (Auto) 8.0 % (1.0-10.0) Eosinophils (%) (Auto) 1.1 % (0.0-3.0) Basophils (%) (Auto) 1.1 % (0.0-2.0) Sodium Level 140 MMOL/L (136-145) Potassium Level 3.6 MMOL/L (3.5-5.1) Chloride Level 106 MMOL/L (98-107) Carbon Dioxide Level 30 MMOL/L (21-32) Anion Gap 4 mmol/L (5-15) L Blood Urea Nitrogen 5 mg/dL (7-18) L Creatinine 0.6 MG/DL (0.55-1.30) Estimat Glomerular Filtration Rate > 60 mL/min (>60) Glucose Level 102 MG/DL (74-106) Calcium Level 7.9 MG/DL (8.5-10.1) L Intake and Output 12/19/17 12/20/17 19:00 07:00 Intake Total 1310 ml 1795.00 ml Output Total 1595 ml 85 ml Balance -285 ml 1710.00 ml Intake Oral 185 ml 200 ml IV Total 1125 ml 1595.00 ml Output Urine Total 1250 ml Drainage Total 245 ml 85 ml Estimated Blood Loss 100 ml # Voids 4 3 Objective PE: Gen - NAD. awake HEENT - NC/AT CVS - RRR. nl s1,2 Lungs - CTA b/l Abd - ND/NT Ext - no c/c/e skin - gluteal wound vac c/d/i ; 2 drains on right and 2 drains on left Assessment/Plan Assessment/Plan bilateral buttock and back soft tissue necrosis, cellulitis s/p staged debridement of bilateral buttock and hip soft tissue necrosis, advancement flap closure - Medsurg - Abx - Plastics following - Wound vac draining - Monitor h/H R hand numbness and near syncope - possibly panic attack - monitor dc planning - ADDISON Eagle M.D. Dec 20, 2017 16:22
--- NOTE | 2017-12-20 16:23 | Discharge Summary ---
Discharge Summary Hospital Course Date of Admission Dec 16, 2017 at 06:34 Date of Discharge Admitting Diagnosis HPI Betzy Willoughby is a 41 year old female who was admitted on Dec 16, 2017 at 06: 34 for Necrotic Soft Skin Tissue Cellulitis Bilateral But Discharge Discharge Disposition Patient was discharged to ADDISON STAPLETON M.D. Dec 20, 2017 16:23
[2017-12-20 20:06] VITALS: BP 109/62
[2017-12-20] MEDS: oxyCODONE HCL/Acetaminophen 5/325mg ORAL PRN (23:51)
[2017-12-21 00:19] VITALS: BP 115/63
[2017-12-21 04:15] VITALS: BP 103/56
[2017-12-21] MEDS: Morphine Sulfate 4mg/ml Inj (IV USE ONLY) IVP PRN (04:20)
[2017-12-21] MEDS: Ampicillin/Sulbactam Sod 3 GM in NS 110 ML IVPB SCH ×3 (06:11→17:15)
[2017-12-21] MEDS: Heparin 5000 units/ml inj SUBQ SCH ×2 (06:13→14:00)
[2017-12-21 06:41] LABS: HEMATOCRIT 22.7 % (37.0-47.0); HEMOGLOBIN 7.8 G/DL (12.0-16.0); MEAN CORPUSCULAR VOLUME 87 FL (80-99); PLATELET COUNT 219 K/UL (150-450); RED CELL DISTRIBUTION WIDTH 10.9 % (11.6-14.8); WHITE BLOOD COUNT 5.4 K/UL (4.8-10.8)
[2017-12-21 07:01] LABS: ANION GAP 2 mmol/L (5-15); BLOOD UREA NITROGEN 6 mg/dL (7-18); CARBON DIOXIDE 32 MMOL/L (21-32); CHLORIDE 108 MMOL/L (98-107); CREATININE 0.5 MG/DL (0.55-1.30); POTASSIUM 3.5 MMOL/L (3.5-5.1); SODIUM 142 MMOL/L (136-145)
[2017-12-21 08:00] VITALS: BP 102/66
[2017-12-21] MEDS: oxyCODONE HCL/Acetaminophen 5/325mg ORAL PRN ×3 (08:33→17:14)
[2017-12-21 12:00] VITALS: BP 116/73
--- NOTE | 2017-12-21 14:34 | Discharge Summary ---
Discharge Summary Hospital Course Date of Admission Dec 16, 2017 at 06:34 Date of Discharge Admitting Diagnosis HPI Betzy Willoughby is a 41 year old female who was admitted on Dec 16, 2017 at 06: 34 for Necrotic Soft Skin Tissue Cellulitis Bilateral But Discharge Discharge Disposition Patient was discharged to Home (01) ADDISON STAPLETON M.D. Dec 21, 2017 14:34
[2017-12-21 16:00] VITALS: BP 117/69
[2017-12-21] MEDS ORDERED: CIPRO500 MG/51 PO ×2 (18:15→18:16)
[2017-12-21] MEDS ORDERED: PERCOCET 5-3251 EACH ORAL (18:17)
[2017-12-21] MEDS ORDERED: NS 500ML ONE (20:09)
[2017-12-21] MEDS ORDERED: LR 1000ml ONE (20:09)
[2017-12-21] MEDS ORDERED: Tubing IV Secondary IV ONE (20:09)
--- NOTE | 2017-12-22 09:01 | History and Physical Report ---
DATE OF ADMISSION: 12/16/2017 CHIEF COMPLAINT: The patient is here for a staged debridement of bilateral soft tissue necrosis/cellulitis. HISTORY OF PRESENT ILLNESS: This is a 41-year-old female with past medical history of asthma and silicone injection of buttocks, complicated by necrotic skin tissue of bilateral buttocks and cellulitis, who underwent staged debridement of necrotic tissue of bilateral buttocks and back as well as flap delay and wound VAC placement. She had estimated blood loss of 500 mL. Wound VAC is in place and intact. The patient denies any chest pain, shortness of breath. Her pain is well controlled with the KICK PRESS OPERATOR pump. She denies any vomiting. She did have some nausea earlier today. PAST MEDICAL HISTORY: Includes asthma. PAST SURGICAL HISTORY: Breast lift, tummy tuck, as well as silicone injection in the buttocks. ALLERGIES: No known drug allergies. MEDICATIONS: Reviewed in [employer]. REVIEW OF SYSTEMS: Ten-point review of systems is negative except for the pertinent positives as mentioned above. PHYSICAL EXAMINATION: VITAL SIGNS: Temperature is 98.3, pulse is 70, respiratory rate 16, blood pressure 118/72, and O2 saturation is 100% on room air. GENERAL: No acute distress. The patient is alert, awake, and oriented x3. HEENT: Normocephalic/atraumatic. NECK: Supple. No JVD. LUNGS: Clear to auscultation bilaterally. No crackles, rhonchi, or rales. CARDIOVASCULAR: Regular rate and rhythm. Normal S1, S2. ABDOMEN: Soft, nontender, and nondistended. EXTREMITIES: No clubbing, cyanosis, or edema. ASSESSMENT AND PLAN: 1. Bilateral buttocks soft tissue necrosis and cellulitis, status post debridement and wound VAC placement. 2. History of asthma. 3. History of vertigo. 4. History of anxiety. PLAN: 1. Admit to Med/Surg. 2. Plastic Surgery following. 3. Monitor wound VAC. 4. Pain control with KICK PRESS OPERATOR. 5. Antibiotics - Unasyn. 6. Continue lactated Ringer's at 125 mL an hour. 7. Albuterol ordered as needed for shortness of breath. 8. DVT prophylaxis with heparin. Rubio King MD DR: SARA JOB#: [id number] CC:
--- NOTE | 2017-12-22 09:53 | Discharge Summary ---
Discharge Summary Discharge Summary _ DATE OF ADMISSION: 12/16/2017 DATE OF DISCHARGE: 12/21/2017 CONSULTANTS: Dr. Shashi Fowler BRIEF HOSPITAL COURSE: Patient is a 41-year-old female, with past medical history of asthma and silicone injection of the buttocks, complicated by necrotic skin tissue and cellulitis, was admitted for stage debridement. She was admitted on 12/16/2017 and underwent stage debridement of bilateral buttock and back soft tissue necrosis, with flap delay and wound VAC placement. Intraoperatively, was given 1 unit packed RBC. She tolerated procedure well , estimated blood loss 500 mL. Postoperatively, she was given pain management. She was given IV fluids. She complained of nausea and was given Zofran prn. On 12/19/2017, she underwent advancement of flap and placement of PREVENA wound VAC. She tolerated procedure well. While ambulating down the hallway. Patient became lightheaded and complained of right hand numbness. Vitals were stable. Symptoms were transient and spontaneously resolved. She was given wound care. She was given instructions on how to use portable wound VAC and how to care for indwelling RENATO drains. Vitals were stable, patient afebrile. She was ambulating well and had good pain control. She was eventually discharged home. FINAL DIAGNOSES: Bilateral buttock and back soft tissue necrosis with cellulitis s/p staged debridement of bilateral buttock and hip soft tissue necrosis, with wound VAC placement and advancement flap closure (refer to operative report on 12/16/2017 and 12/19/2017) Right hand numbness and near syncope possibly due to panic attack, transient and resolved Anemia DISPOSITION: Patient was discharged home. DISCHARGE MEDICATIONS: Refer to Discharge Medication List. DISCHARGE INSTRUCTIONS: Follow up with surgeon in a week. I have been assigned to dictate discharge summary on this account, and I was not involved in the patient's management. Era Tomas NP Dec 22, 2017 09:53
== END 2017-12-21 20:10 | disposition home or self-care (01) | DRG 574 ==
LOC: SDSOVERFLO 06:34 → 3E 12:51
DX: L03.317 Cellulitis of buttock (principal); I96 Gangrene, not elsewhere classified; J45.909 Unspecified asthma, uncomplicated; D64.9 Anemia, unspecified; R55 Syncope and collapse; R20.0 Anesthesia of skin; Z98.890 Other specified postprocedural states; M60.28 Foreign body granuloma of soft tissue, not elsewhere classified, other site; Z18.89 Other specified retained foreign body fragments
CPT/HCPCS: 36415; 80048; 81025; 85007; 85025; 86850; 86900; 86901; 86920; 87081; 94003; 94150; 94664; 94760; J2250; J2405; J2710; J8499